=== PATIENT | female | born 2000 | race Caucasian/White ===

== ENCOUNTER 2022-02-04 00:08 | Observation (INO) | payer MEDICAID, OTHER ==
[~2022-02-04] VITALS: Ht 162.6 cm; Wt 81.6 kg
[2022-02-04] MEDS ORDERED: LACTATED RINGERS 1,000 ML IV SCH (01:00)
[2022-02-04] MEDS ORDERED: PNV (01:28)
[2022-02-04 01:29] LABS: BASOPHILS % 0.3 % (0.0-2.0); EOSINOPHILS % 2.8 % (0.0-5.0); HEMATOCRIT. 36.7 % (36.0-48.0); HEMOGLOBIN. 12.7 g/dL (12.0-16.0); LYMPHOCYTES % 17.2 % (20.0-50.0); MEAN CORPUSCULAR HEMOGLOBIN 30.8 pg (28.0-32.0); MEAN CORPUSCULAR VOLUME 88.6 fL (81.0-99.0); MEAN PLATELET VOLUME 7.6 fl (7.4-10.4); MONOCYTES % 9.5 % (2.0-8.0); NEUTROPHILS % 70.2 % (40.0-76.0); PLATELET 213 x1000/uL (130-400); RED BLOOD CELL COUNT 4.14 mill/uL (4.2-5.4); RED CELL DISTRIBUTION WIDTH 14.3 % (11.6-14.6)
[2022-02-04] MEDS ORDERED: Iron (01:29)
[2022-02-04 01:42] LABS: INR 0.9; PARTIAL THROMBOPLASTIN TIME 25.6 sec (23.4-31.0); PROTHROMBIN TIME 10.1 sec (9.6-11.0)
[2022-02-04 01:46] LABS: CHLORIDE 111 mEq/L (98-107)
== END 2022-02-04 08:15 | disposition home or self-care (01) ==
LOC: 8 EST LDRP 00:08
PROVIDERS: ADMIT Obstetrics & Gynecology; ATTEND Obstetrics & Gynecology
DX: O99.891 Other specified diseases and conditions complicating pregnancy (principal); M54.9 Dorsalgia, unspecified; Z3A.31 31 weeks gestation of pregnancy; W19.XXXA Unspecified fall, initial encounter; Y92.89 Other specified places as the place of occurrence of the external cause; Y93.89 Activity, other specified; Y99.8 Other external cause status
CPT/HCPCS: 36415; 59025; 76805; 76818; 80053; 85025; 85384; 85610; 85730; 96360; 96361; G0378

== ENCOUNTER 2022-03-31 06:41 | Inpatient (IN) | payer MEDICAID, OTHER ==
[~2022-03-31] VITALS: Ht 160 cm; Wt 87.1 kg
[~2022-03-31 06:41] MED LIST: Iron; PNV
[2022-03-31] MEDS ORDERED: CARBOPROST TROMETHAMINE 250 MCG/ML AMPUL IM PRN (08:00)
[2022-03-31] MEDS ORDERED: NALOXONE HCL 0.4 MG/ML 1ML VIAL IM PRN (08:00)
[2022-03-31] MEDS ORDERED: METHYLERGONOVINE MALEATE 0.2 MG/ML IM PRN (08:00)
[2022-03-31] MEDS ORDERED: OXYTOCIN 30 UNITS/500ML NS PMX 500 ML IV SCH ×2 (08:00→18:00)
[2022-03-31] MEDS ORDERED: MISOPROSTOL 200MCG TABLET VG SCH (08:00)
[2022-03-31] MEDS ORDERED: CITRIC ACID/SODIUM CITRATE SOLN 30ML UDC PO ONE (08:15)
[2022-03-31 08:24] LABS: BASOPHILS % 0.3 % (0.0-2.0); EOSINOPHILS % 0.7 % (0.0-5.0); HEMATOCRIT. 38.8 % (36.0-48.0); HEMOGLOBIN. 13.4 g/dL (12.0-16.0); LYMPHOCYTES % 17.9 % (20.0-50.0); MEAN CORPUSCULAR HEMOGLOBIN 30.7 pg (28.0-32.0); MEAN PLATELET VOLUME 8.1 fl (7.4-10.4); MONOCYTES % 7.9 % (2.0-8.0); NEUTROPHILS % 73.2 % (40.0-76.0); PLATELET 193 x1000/uL (130-400); RED BLOOD CELL COUNT 4.35 mill/uL (4.2-5.4); RED CELL DISTRIBUTION WIDTH 14.3 % (11.6-14.6)
[2022-03-31] MEDS: LACTATED RINGERS 1,000 ML IV SCH ×3 (08:24→15:43)
[2022-03-31 08:32] LABS: INR 0.9; PARTIAL THROMBOPLASTIN TIME 25.7 sec (23.4-31.0); PROTHROMBIN TIME 9.9 sec (9.6-11.0)
[2022-03-31] MEDS ORDERED: CEFAZOLIN SODIUM 1000MG/VIAL ONE (08:56)
[2022-03-31] MEDS ORDERED: OXYTOCIN 10 UNITS/ML 1ML ONE (08:56)
[2022-03-31] MEDS ORDERED: MORPHINE SULFATE/PF 1MG/ML 10ML AMP ONE (08:56)
[2022-03-31] MEDS ORDERED: DIPHENHYDRAMINE 50MG/ML VIAL ONE (08:56)
[2022-03-31] MEDS ORDERED: ONDANSETRON HCL 4MG/2ML INJ ONE (08:56)
[2022-03-31] MEDS ORDERED: FENTANYL CITRATE/PF 50MCG/ML 2ML VIAL ONE (08:57)
[2022-03-31] MEDS ORDERED: PHENYLEPHRINE HCL 10 MG/ML 1ML (IV VIAL) IV ONE (08:57)
[2022-03-31] MEDS ORDERED: EPHEDRINE SULFATE 50MG/ML VIAL ONE (08:57)
[2022-03-31 10:52] LABS: CLARITY URINE CLEAR (CLEAR); COLOR URINE YELLOW (YELLOW); KETONES URINE NEGATIVE (NEGATIVE); LEUKOCYTE ESTERASE URINE TRACE (NEGATIVE); NITRITE URINE NEGATIVE (NEGATIVE); OCCULT BLOOD URINE NEGATIVE (NEGATIVE); PH URINE 7.5 (4.5-8.0); PROTEIN URINE NEGATIVE (NEGATIVE); SPECIFIC GRAVITY URINE 1.009 (1.005-1.030); UROBILINOGEN URINE 0.2 E.U./dL (0.2-1.0)
[2022-03-31 11:15] LABS: HEPATITIS B SURFACE ANTIGEN NEGATIVE
[2022-03-31 11:27] LABS: *AMPHETAMINES SCREEN URINE NEGATIVE (NEGATIVE); *BARBITURATES SCREEN URINE NEGATIVE (NEGATIVE); *BENZODIAZEPINES SCREEN URINE NEGATIVE (NEGATIVE); *COCAINE SCREEN URINE NEGATIVE (NEGATIVE); CANNABINOID URINE SCREEN NEGATIVE (NEGATIVE); METHADONE URINE SCREEN NEGATIVE (NEGATIVE); OPIATES URINE SCREEN NEGATIVE (NEGATIVE); PHENCYCLIDINE URINE SCREEN NEGATIVE (NEGATIVE)
[2022-03-31] MEDS ORDERED: KETOROLAC 60MG/2ML VIAL IM ONE (16:26)
[2022-03-31] MEDS ORDERED: DIPHENHYDRAMINE 25MG CAPSULE PO PRN (18:00)
[2022-03-31] MEDS ORDERED: IBUPROFEN 400MG TABLET PO PRN (18:00)
[2022-03-31] MEDS ORDERED: HEMORRHOIDAL SUPP PR PRN (18:00)
[2022-03-31] MEDS ORDERED: BISACODYL 10MG SUPP PR PRN (18:00)
[2022-03-31] MEDS ORDERED: LANOLIN OINT 7GM TUBE TOP PRN (18:00)
[2022-03-31] MEDS ORDERED: RHO(D) IMMUNE GLOBULIN 300 MCG/SYR IM PRN (18:00)
[2022-03-31] MEDS ORDERED: ACETAMINOPHEN WITH CODEINE 300/30MG TABLET PO PRN (18:00)
[2022-03-31] MEDS ORDERED: ONDANSETRON HCL 4MG/2ML INJ IV PRN (18:00)
[2022-03-31] MEDS ORDERED: NALOXONE HCL 0.4 MG/ML 1ML VIAL IV PRN (19:00)
[2022-03-31] MEDS ORDERED: DIPHENHYDRAMINE 50MG/ML VIAL IV PRN (19:00)
[2022-03-31] MEDS ORDERED: BUTORPHANOL TARTRATE 2 MG/ML VIAL IV PRN (19:00)
[2022-03-31] MEDS ORDERED: KETOROLAC 30MG/ML VIAL IV SCH (19:00)
[2022-03-31 20:00] VITALS: BP 110/66
[2022-03-31] MEDS ORDERED: DOCUSATE SODIUM 100MG CAPSULE PO SCH (21:00)
[2022-04-01] MEDS ORDERED: INFLUENZA VACCINE 05/PF 0.5 ML SYRINGE IM ONE (03:15)
[2022-04-01] MEDS ORDERED: TETANUS, DIPHTHERIA, PERTUSSIS VAC/PF 0.5ML (>10YR OLD) IM ONE (03:15)
[2022-04-01 04:00] VITALS: BP 107/70
[2022-04-01 06:26] LABS: BASOPHILS % 0.2 % (0.0-2.0); EOSINOPHILS % 0.3 % (0.0-5.0); HEMOGLOBIN. 11.9 g/dL (12.0-16.0); LYMPHOCYTES % 10.6 % (20.0-50.0); MEAN CORPUSCULAR VOLUME 88.1 fL (81.0-99.0); MONOCYTES % 8.2 % (2.0-8.0); NEUTROPHILS % 80.7 % (40.0-76.0); PLATELET 172 x1000/uL (130-400); RED BLOOD CELL COUNT 3.86 mill/uL (4.2-5.4); RED CELL DISTRIBUTION WIDTH 14.7 % (11.6-14.6)
[2022-04-01 08:00] VITALS: BP 107/67
[2022-04-01] MEDS: SIMETHICONE 80MG TABLET CHEW PO SCH ×3 (12:05→21:11)
[2022-04-01] MEDS: PRENATAL VIT/FE FUMARATE/FA TABLET PO SCH (12:05)
[2022-04-01] MEDS: MAGNESIUM/ALUMINUM HYDROXIDE/SIMETHICONE 30ML UDC PO SCH ×3 (12:05→21:00)
[2022-04-01] MEDS: FERROUS SULFATE 325MG TABLET PO SCH ×2 (12:06→17:16)
[2022-04-01] MEDS: IBUPROFEN 800MG TABLET PO PRN (15:31)
[2022-04-01 16:00] VITALS: BP 110/65
[2022-04-01 22:02] VITALS: BP 114/79
[2022-04-02] MEDS: MAGNESIUM/ALUMINUM HYDROXIDE/SIMETHICONE 30ML UDC PO SCH (07:30)
[2022-04-02 08:00] VITALS: BP 112/75
[2022-04-02] MEDS: FERROUS SULFATE 325MG TABLET PO SCH (08:33)
[2022-04-02] MEDS: SIMETHICONE 80MG TABLET CHEW PO SCH (08:33)
[2022-04-02] MEDS: PRENATAL VIT/FE FUMARATE/FA TABLET PO SCH (08:33)
[2022-04-02] MEDS: IBUPROFEN 800MG TABLET PO PRN (08:34)
[2022-04-02 16:00] VITALS: BP 116/76
[2022-04-02] MEDS ORDERED: IBUP-2030 PO (18:46)
== END 2022-04-02 20:10 | disposition home or self-care (01) | DRG 539 ==
LOC: 8 EST LDRP 06:41 → OBSVTOIN 06:41 → 8EST 20:58
PROVIDERS: ADMIT Obstetrics & Gynecology; ATTEND Obstetrics & Gynecology
PROC: 10D00Z1 Extraction of Products of Conception, Low, Open Approach (ICD-10-PCS; principal; 2022-03-31)
PROC: 0UB70ZZ Excision of Bilateral Fallopian Tubes, Open Approach (ICD-10-PCS; 2022-03-31)
DX: O34.211 Maternal care for low transverse scar from previous cesarean delivery (principal); Z37.0 Single live birth; Z3A.39 39 weeks gestation of pregnancy
CPT/HCPCS: 36415; 80305; 81003; 85025; 86592; 86703; 86762; 86850; 86900; 87340; 87426; 88307; 90686; 90715; 99281; J0690; J1200; J1885; J2274; J2370; J2405; J3010; J3490; J7120; Q0163; A4315; J2590